=== PATIENT | female | born 1955 | race Two or more races ===

== ENCOUNTER 2018-03-15 07:41 | Outpatient (CLI) | payer OTHER ==
[~2018-03-15 07:41] MED LIST: AMBIEN5 MG; CARDIZEM LA120 MG; PLAVIX75 MG; SYNTHROID75 MCG; ZANAFLEX2 M2; ZOLOFT25 MG
== END 2018-03-15 07:46 | disposition home or self-care (01) ==
LOC: SONOGRAMA 07:41
DX: E04.2 Nontoxic multinodular goiter (principal)